=== PATIENT | male | born 1980 | race Caucasian/White ===

== ENCOUNTER 2017-07-09 16:22 | Emergency (ER) | payer BC ==
[2017-07-09 16:34] VITALS: BP 131/91
--- NOTE | 2017-07-09 16:34 | UC ---
Skin Complaint HPI - HPI Summary HPI Summary: 37 yo male presents with infected blister to left heel. He tells me that he is an avid runner and has old running shoes that rub on his feet. 2 days ago ran 5 miles and yesterday noticed a small blister on his left heel. Today is larger, red around it, and has filled with yellow/brown colored fluid. Denies fever, chills. - History of Current Complaint Time Seen by Provider: 07/09/17 16:33 Stated Complaint: BLISTER ON FOOT Hx Obtained From: Patient Onset/Duration: Sudden Onset Skin Exposure Onset/Duration: Hours Ago Timing: Constant Onset Severity: Mild Current Severity: Mild Pain Intensity: 3 Pain Scale Used: 0-10 Numeric - Allergy/Home Medications Allergies/Adverse Reactions: Allergies Allergy/AdvReac Type Severity Reaction Status Date / Time No Known Allergies Allergy Verified 07/09/17 16:34 Home Medications: Home Medications Fluticasone NASAL SPRAY 50MCG* [Flonase NASAL SPRAY 50MCG*] 1 spray NASAL DAILY PRN 07/09/17 [History Confirmed 07/09/17] Ibuprofen TAB* [Advil TAB*] 200 mg PO Q6H PRN 07/09/17 [History Confirmed ] Multivitamin [Multivitamins] 1 cap PO DAILY 07/09/17 [History Confirmed 07/09/17 ] Review of Systems Constitutional: Negative Skin: Other - Blister on left heel Respiratory: Negative Cardiovascular: Negative Neurovascular: Negative Neurological: Negative Psychological: Negative All Other Systems Reviewed And Are Negative: Yes PMH/Surg Hx/FS Hx/Imm Hx - Additional Past Medical History Additional PMH: None Previously Healthy: Yes Physical Exam - Summary Physical Exam Summary: GENERAL: NAD. WDWN. No pain distress. SKIN: Left heel at base of achilles: 2.0cm blister with 5mm surrounding erythema. Mild TTP. Blister appears filled with a thick yellow/brown fluid. No streaking, bleeding, or active drainage. NECK: Supple. Nontender. No lymphadenopathy. CHEST: No accessory muscle use. Breathing comfortably and in no distress. CV: RRR. Without m/r/g. NEURO: Alert. CN II-XII grossly intact. PSYCH: Age appropriate behavior. Triage Information Reviewed: Yes Vital Signs: Vital Signs: Temp Pulse Resp BP Pulse Ox 97.9 F 74 16 131/91 99 05/28/18 16:29 07/09/17 16:29 07/09/17 16:29 07/09/17 16:29 07/09/17 16:29 Course/Dx - Course Course Of Treatment: A small inferior portion of the blister was popped and the fluid was taken for culture. Rx for keflex as appears to have a mild wound infection. - Diagnoses Provider Diagnoses: Infected Blister left heel Discharge - Sign-Out/Discharge Documenting (check all that apply): Discharge/Admit/Transfer - Discharge Plan Condition: Stable Disposition: HOME Prescriptions: Cephalexin CAP* [Keflex CAP*] 500 mg PO BID #14 cap Patient Education Materials: Wound Infection (DC) Referrals: Calin Mina MD [Primary Care Provider] - Additional Instructions: If you develop a fever, shortness of breath, chest pain, new or worsening symptoms - please call your PCP or go to the ED. Your blood pressure was high at todays visit. Please see your primary provider within 4 weeks for recheck and re-evaluation. 1) Keep area clean, dry, and bandaged until well healed. - Billing Disposition and Condition Condition: STABLE Disposition: HOME
--- NOTE | 2017-07-10 18:17 | UC ---
- Progress Note Progress Note: Pt with 2+ neutrophil 2+ gram cocci on keflex await josse Ragsdale 07/10/2017 1815 Discharge - Sign-Out/Discharge Documenting (check all that apply): Post-Discharge Follow Up - Discharge Plan Condition: Stable Disposition: HOME Prescriptions: Cephalexin CAP* [Keflex CAP*] 500 mg PO BID #14 cap Patient Education Materials: Wound Infection (DC) Referrals: Calin Mina MD [Primary Care Provider] - Additional Instructions: If you develop a fever, shortness of breath, chest pain, new or worsening symptoms - please call your PCP or go to the ED. Your blood pressure was high at todays visit. Please see your primary provider within 4 weeks for recheck and re-evaluation. 1) Keep area clean, dry, and bandaged until well healed. - Billing Disposition and Condition Condition: STABLE Disposition: HOME
== END 2017-07-09 16:54 | disposition home or self-care (01) ==
LOC: UCEAST 16:22
DX: S90.822A Blister (nonthermal), left foot, initial encounter (principal); L08.9 Local infection of the skin and subcutaneous tissue, unspecified; Y93.02 Activity, running; Y92.9 Unspecified place or not applicable; B96.89 Other specified bacterial agents as the cause of diseases classified elsewhere
CPT/HCPCS: 87070; 87077; 87186; 87205; 87640; 87641; 99202; G0463